=== PATIENT | female | born 1975 | race African-American/Black ===

== ENCOUNTER 2017-10-21 08:27 | Day surgery (SDC) | payer BC ==
[2017-10-20 13:13] VITALS: BMI 24.0
[2017-10-21] MEDS ORDERED: Fentanyl 100 MCG/2 ML VIAL ONE ×2 (10:27→12:06)
[2017-10-21] MEDS ORDERED: Midazolam HCl 2 mg/2 ml Vial ONE (10:27)
[2017-10-21] MEDS ORDERED: EPINEPHrine 1 MG/ML AMP ONE (10:30)
[2017-10-21] MEDS ORDERED: Lidocaine 1% PF 5 ML VIAL ONE (10:40)
[2017-10-21] MEDS ORDERED: Succinylcholine Chloride 20 MG/ML 10 ml SYRINGE FS ONE (10:40)
[2017-10-21] MEDS ORDERED: PROPOFOL 200 MG/20 ML VIAL ONE (10:40)
[2017-10-21] MEDS ORDERED: Ondansetron HCl/PF 4 MG/2 ML Vial ONE (10:40)
[2017-10-21] MEDS ORDERED: Dexamethasone 20 MG/5 ML VIAL ONE (10:40)
--- NOTE | 2017-10-21 12:51 | OP ---
DATE OF PROCEDURE: 10/21/2017 PREOPERATIVE DIAGNOSES: 1. Severe hoarseness. 2. Right vocal fold cyst. POSTOPERATIVE DIAGNOSES: 1. Severe hoarseness. 2. Right vocal fold cyst. PROCEDURE PERFORMED: Microsuspension laryngoscopy with excision of vocal cord cyst. PROCEDURE IN DETAIL: After consent was obtained, the patient was identified and brought to the opera ting room and placed on the table in supine position. General anesthesia was used with a jet ventila ting endotracheal tube and the larynx was visualized. The right anterior one-third of the cord had a mucous cyst that was submucosal. An incision was made in the mucosa with an upbiting scissor and th e submucosal plane was established. The cyst was encountered and micro dissected from the surface of the vocal ligament. Care was made not to injure the mucosa or the fibrous component of the cord. T he mucosal flap was then reapproximated. Topical lidocaine and adrenaline was placed on the operativ e site and the patient was awakened, extubated and taken to recovery where she remained in stable con dition prior to discharge home.
== END 2017-10-21 13:17 | disposition home or self-care (01) ==
LOC: SDC 08:27
PROVIDERS: ATTEND Specialist
PROC: 0CBT8ZZ Excision of Right Vocal Cord, Via Natural or Artificial Opening Endoscopic (ICD-10-PCS; principal; 2017-10-21)
DX: J38.3 Other diseases of vocal cords (principal); Z91.018 Allergy to other foods
CPT/HCPCS: 36415; 85014; 96374; J0171; J1100; J2001; J2250; J2405; J2704; J3010